=== PATIENT | female | born 1990 | race American Indian/Alaskan Native ===

== ENCOUNTER 2018-10-25 13:50 | Outpatient (CLI) | payer MEDICARE ==
--- NOTE | 2018-10-25 15:23 | Ultrasound Report ---
RIGHT BREAST ULTRASOUND HISTORY: 27-year-old with a palpable breast lump. COMPARISON: None. FINDINGS: Sonographic evaluation focused upon the upper inner location of the right breast where a pa lpable lump is felt. Ultrasound demonstrated a benign anechoic oval smooth cyst at 11:30 o'clock 5 cm from the nipple measuring 7 x 7 x 5 mm. Several smaller adjacent cysts. A benign cyst at 12:00 4 cm from the nipple measures 5 x 4 mm. No solid mass or shadowing. IMPRESSION Benign cysts and no suspicious finding. Recommend medical follow-up and routine mammographic screening based on ACS guidelines. BIRADS 2: Benign Signer Name: Dong Sweeney MD Signed: 10/25/2018 3:19 PM Workstation Name: [id number]
== END 2018-10-25 13:51 | disposition home or self-care (01) ==
LOC: SPVWC 13:50
PROVIDERS: ATTEND Advanced Practice Midwife
DX: N60.01 Solitary cyst of right breast (principal)